=== PATIENT | male | born 1955 | race Caucasian/White ===

== ENCOUNTER 2016-08-08 13:43 | Emergency (ER) | payer BC ==
[2016-08-08] MEDS ORDERED: NS 0.9% 1000 ML* 1,000 ML IV ONE (15:28)
[2016-08-08] MEDS ORDERED: Ondansetron INJ* 2 MG/ML VIAL IV ONE (15:36)
--- NOTE | 2016-08-08 16:47 | UC ---
FLU HPI - HPI Summary HPI Summary: pt c/o nausea, vomiting, VÁZQUEZ, generalized fatigue and malaise X 1 day. Pt reports that he had vein stripping procedure 9 days ago with out complication. Additionally, pt reports that one of his right lower molars began to be painful 6 days ago. He describes the pain as "raw nerve" that has since resolved. Pt began taking amoxicillin 875 mg po on 08/06/16 for the tooth pain and has taken three doses. Amoxicillin was medication from previous illness he had left over. - History of Current Complaint Chief Complaint: UCGeneralIllness Stated Complaint: VOMITING Time Seen by Provider: 08/08/16 15:07 Hx Obtained From: Patient Onset/Duration: Sudden Onset, Lasting Hours Severity Currently: Mild Severity Initially: Moderate Associated Signs & Symptoms: Positive: Headache, Vomiting - Allergy/Home Medications Allergies/Adverse Reactions: Allergies Allergy/AdvReac Type Severity Reaction Status Date / Time Sulfa Antibiotics Allergy GI Upset Verified 08/08/16 15:23 Seasonal Allergy Intermediate Runny Nose Uncoded 08/08/16 15:23 Home Medications: Home Medications Amoxicillin (*) 1 tab 08/08/16 [History] Ascorbic Acid [Vitamin C] 08/08/16 [History] Atorvastatin* [Lipitor 10 MG*] 1 tab PO DAILY 08/08/16 [History Confirmed ] oxyCODONE/Acetamin 5/325 MG* [Percocet 5/325 TAB*] 1 tab 08/08/16 [History] PMH/Surg Hx/FS Hx/Imm Hx Previously Healthy: Yes Endocrine History Of: Denies: Diabetes, Thyroid Disease Cardiovascular History Of: Denies: Cardiac Disorders, Hypertension Respiratory History Of: Denies: COPD, Asthma GI/ History Of: Denies: Ulcer - Surgical History Surgical History: Yes Surgery Procedure, Year, and Place: Varicose veins removed bilateral X 3. - Family History Known Family History: Positive: Cardiac Disease - Social History Occupation: Employed Full-time Lives: With Family Alcohol Use: Occasionally Substance Use Type: None Smoking Status (MU): Former Smoker - Immunization History Most Recent Influenza Vaccination: 04/2016 Review of Systems Constitutional: Negative Skin: Negative Eyes: Negative ENT: Negative Respiratory: Negative Cardiovascular: Negative Gastrointestinal: Vomiting Genitourinary: Negative Motor: Negative Neurovascular: Negative Musculoskeletal: Myalgia Neurological: Negative Psychological: Negative All Other Systems Reviewed And Are Negative: Yes Physical Exam Triage Information Reviewed: Yes Appearance: Ill-Appearing Vital Signs: Initial Vital Signs Temp 96.0 F 08/08/16 15:07 Pulse 95 08/08/16 15:07 Resp 18 08/08/16 15:07 BP 166/107 08/08/16 15:07 Pulse Ox 100 08/08/16 15:07 Vital Signs Reviewed: Yes Eye Exam: Normal Neck exam: Normal Respiratory Exam: Normal Cardiovascular Exam: Normal Abdominal Exam: Normal Bowel Sounds: Positive: Present Musculoskeletal Exam: Other Musculoskeletal: Positive: Other: - right inner thigh with bruising, palpable varicose veins non tender Neurological Exam: Normal Psychological Exam: Normal Skin Exam: Other - bruisig left inner upper medial thigh Flu Course/Dx - Differential Dx/Diagnosis Differential Diagnosis/HQI/PQRI: Influenza, Other - gastroenteritis dehydration Provider Diagnoses: gastroenteritis. headache. dehydration Discharge - Discharge Plan Condition: Stable Disposition: HOME Prescriptions: Ondansetron ODT TAB* [Zofran Odt TAB*] 8 mg PO Q8H PRN #15 tab.odt PRN Reason: Nausea Patient Education Materials: Gastroenteritis (ED), General Headache (ED) Referrals: Radha Barreto MD [Primary Care Provider] -
[2016-08-08 17:56] VITALS: BP 156/98
[2016-08-08] MEDS ORDERED: Ondansetron ODT TAB* 4 MG PO ONE (18:06)
[2016-08-09 11:49] LABS: Hematocrit 43 % (42-52); Hemoglobin 14.6 g/dl (14.0-18.0); Mean Corpuscular HGB Conc 34 g/dl (31-36); Mean Corpuscular Hemoglobin 30 pg (27-31); Mean Corpuscular Volume 88 fL (80-94); Mean Platelet Volume 8 um3 (7.4-10.4); Red Blood Count 4.88 10^6/ul (4.0-5.4); Red Cell Distribution Width 13 % (10.5-15); White Blood Count 11.4 10^3/ul (3.5-10.8)
[2016-08-09 11:50] LABS: Add Diff/Slide Review? Slide Review Added; Comments Flag Yes
[2016-08-09 12:00] LABS: Albumin 4.3 g/dL (3.2-5.2); BUN/Creatinine Ratio 20.9 (8-20); Calcium 9.1 mg/dL (8.6-10.3); EGFR African American 116.3 (>60); EGFR Non-African American 90.4 (>60); Globulin 2.9 g/dL (2-4); Potassium 4.1 mmol/L (3.5-5.0); Total Bilirubin 0.6 mg/dL (0.2-1.0); Total Protein 7.2 g/dL (6.4-8.9)
== END 2016-08-08 18:41 | disposition home or self-care (01) ==
LOC: UCEAST 13:43
DX: K52.9 Noninfective gastroenteritis and colitis, unspecified (principal); E86.0 Dehydration; Z87.891 Personal history of nicotine dependence; Z98.890 Other specified postprocedural states; Z88.2 Allergy status to sulfonamides
CPT/HCPCS: 36415; 80053; 85025; 86703; 86803; 87502; 93005; 96361; 96374; 96375; 99203; A9270-GY; G0463; J2405